=== PATIENT | male | born 1995 | race Hispanic/Latino ===

== ENCOUNTER 2017-06-22 11:38 | Observation (INO) | payer BC ==
[2017-06-21 10:13] LABS: BASOPHILS # (AUTO) 0.1 (0.0-0.1); BASOPHILS % 0.7 % (0.0-1.0); EOSINOPHILS # (AUTO) 0.2 (0.0-0.4); EOSINOPHILS % 2.5 % (0.0-6.0); HEMATOCRIT 47.8 % (38.2-49.6); LYMPHOCYTES # (AUTO) 1.9 (1.0-3.2); LYMPHOCYTES % 26.8 % (18.0-39.1); MEAN CORPUSCULAR HGB CONC 35.6 g/dL (31-35); MEAN CORPUSCULAR VOLUME 89.8 fL (81-99); MONOCYTES # (AUTO) 0.5 (0.2-0.8); MONOCYTES % 6.7 % (4.4-11.3); NEUTROPHILS # (AUTO) 4.3 (2.1-6.9); NEUTROPHILS % 62.4 % (38.7-80.0); PLATELET COUNT 245 x10e3/uL (140-360); RED BLOOD COUNT 5.32 x10e6/uL (4.3-5.7); RED CELL DISTRIBUTION WIDTH 11.8 % (11.7-14.4)
[2017-06-21 10:24] LABS: INR 0.86; PROTHROMBIN TIME 12.1 seconds (11.9-14.5)
[2017-06-21 10:25] LABS: PARTIAL THROMBOPLASTIN TIME 27.6 seconds (23.8-35.5)
[2017-06-21 10:30] LABS: ANION GAP 15.6 mmol/L (8-16); BLOOD UREA NITROGEN 12 mg/dL (7-26); BUN/CREATININE RATIO 10 (6-25); CALCIUM 9.9 mg/dL (8.4-10.2); CARBON DIOXIDE 28 mmol/L (22-29); CHLORIDE 104 mmol/L (98-107); CREATININE, SERUM 1.15 mg/dL (0.72-1.25); EST GLOMERULAR FILTRATION RATE > 60 ML/MIN (60-); GLUCOSE 106 mg/dL (74-118); POTASSIUM 4.6 mmol/L (3.5-5.1); SODIUM 143 mmol/L (136-145)
--- NOTE | 2017-06-21 11:10 | Diagnostic Imaging Report ---
PROCEDURE: Frontal and lateral views of the chest. COMPARISON: None. INDICATIONS: PECTUS EXCAVATUM, PLATE REMOVAL SURGERY TOMORROW FINDINGS: Lines/tubes: There is a plate anterior involving the sternum. Lungs: The lungs are well inflated and clear. There is no evidence of pneumonia or pulmonary edema. Pleura: There is no pleural effusion or pneumothorax. Heart and mediastinum: The heart and the mediastinum are normal. Bones: No acute bony abnormality. Mild pectus excavatum deformity of the chest. IMPRESSION: No acute cardiopulmonary disease. Flaco Fuentes D.O. Dictated by: Flaco Fuentes D.O. on 06/21/2017 at 11:18 Electronically approved by: Flaco Fuentes D.O. on 06/21/2017 at 11:18
[~2017-06-22] VITALS: Ht 182.9 cm; Wt 93.4 kg
[~2017-06-22 11:38] MED LIST: PERCOCET 5-3251 EACH PO; SYNTHROID125 MCG PO
[2017-06-22] MEDS ORDERED: BUPIVACAINE HCL 0.5% INJ 30 ML VIAL INJ ONE (13:15)
[2017-06-22] MEDS ORDERED: BACITRACIN 50,000 UNIT VIAL ONE (13:16)
[2017-06-22] MEDS ORDERED: VANCOMYCIN 1GM/NS 250 ML 250 ML ONE (14:21)
[2017-06-22] MEDS ORDERED: FENTANYL CITRATE/PF 100MCG/2 ML INJ ONE ×2 (17:02→19:02)
[2017-06-22] MEDS ORDERED: ONDANSETRON HCL 4 MG ORAL DISINTEGRATING TAB PO PRN (17:30)
[2017-06-22] MEDS ORDERED: HYDROMORPHONE 2MG/ML INJ ONE (17:54)
--- NOTE | 2017-06-22 18:08 | Diagnostic Imaging Report ---
PROCEDURE: A single AP view of the chest. COMPARISON: Patients [facility], DX, CHEST 2 VIEWS, 06/21/2017, 9:58. INDICATIONS: POST OP removal of Gonzales strut FINDINGS: Lines/tubes:, None. Lungs: The lungs are well inflated and grossly clear. There is no evidence of pneumonia or pulmonary edema. Pleura: There is no pleural effusion or pneumothorax. Heart and mediastinum: Cardiac silhouette is unremarkable. Pulmonary vasculature is normal. Bones: No acute bony abnormality. Previously visualized metallic strut has been removed. IMPRESSION: 1. No acute cardiopulmonary abnormalities. Lucio Cope M.D. Dictated by: Lucio Cope M.D. on 06/22/2017 at 18:16 Electronically approved by: Lucio Cope M.D. on 06/22/2017 at 18:16
[2017-06-22] MEDS: SODIUM CHLORIDE 0.9% 1000ML 1,000 ML IV SCH (18:40)
[2017-06-22] MEDS ORDERED: MIDAZOLAM HCL 2 MG/2 ML VIAL ONE (19:02)
[2017-06-22 19:56] VITALS: BP 129/77
[2017-06-22] MEDS: ACETAMINOPHEN/CODEINE 300MG - 30MG TAB PO PRN (20:51)
[2017-06-23] MEDS: ACETAMINOPHEN/CODEINE 300MG - 30MG TAB PO PRN ×2 (00:42→04:29)
[2017-06-23 01:33] VITALS: BP 124/74
[2017-06-23] MEDS ORDERED: HYDROMORPHONE 1MG/1ML INJ IV PRN (03:15)
[2017-06-23] MEDS ORDERED: TYLENOL WITH C1 EACH PO (03:24)
[2017-06-23] MEDS ORDERED: BACTROBAN15 G1 TOP (03:25)
[2017-06-23] MEDS: SODIUM CHLORIDE 0.9% 1000ML 1,000 ML IV SCH (04:00)
[2017-06-23 04:16] VITALS: BP 118/59
[2017-06-23] MEDS ORDERED: LEVOTHYROXINE SODIUM 100 MCG TAB PO SCH (06:00)
[2017-06-23] MEDS ORDERED: LEVOTHYROXINE SODIUM 75 MCG TAB PO SCH (06:00)
[2017-06-23] MEDS ORDERED: LEVOTHYROXINE SODIUM 125 MCG TAB PO SCH (06:30)
[2017-06-23 08:00] VITALS: BP 117/76
[2017-06-23] MEDS ORDERED: LIDOCAINE HCL 2% LOCAL INJ 5 ML SDV VIAL INJ ONE (08:14)
[2017-06-23] MEDS ORDERED: ROCURONIUM BROMIDE 10 MG/ML 5ML VIAL IV ONE (08:14)
[2017-06-23] MEDS ORDERED: SUCCINYLCHOLINE 200 MG/10 ML SYR IV ONE (08:14)
[2017-06-23] MEDS ORDERED: ONDANSETRON HCL INJ 2 MG/ML VIAL IV ONE (08:14)
[2017-06-23] MEDS ORDERED: DEXAMETHASONE SOD PHOS INJ 4 MG/ML VIAL IV ONE (08:14)
[2017-06-23] MEDS ORDERED: SEVOFLURANE INHAL SOLN 250 ML PEN BTL INH ONE (08:14)
[2017-06-23] MEDS ORDERED: KETOROLAC TROMETHAMINE 30 MG/ML VIAL IV ONE (08:14)
[2017-06-23] MEDS ORDERED: PROPOFOL IV EMULSION 10 MG/ML 20 ML VIAL IV ONE (08:14)
--- NOTE | 2017-06-24 17:40 | Operative Report ---
DATE OF PROCEDURE: June 22, 2017 [employer]CRA[employer]INTENA[employer]CE ENGINEER: Artie Alavrado CST PREOPERATIVE DIAGNOSES: 1. Status post correction of pectus excavatum in the past. 2. Indwelling Gonzales bar. POSTOPERATIVE DIAGNOSES: 1. Status post correction of pectus excavatum in the past. 2. Indwelling Gonzales bar. TITLE OF OPERATION: Removal of Gonzales bar. DESCRIPTION OF OPERATION: After the satisfactory accomplishment of general anesthesia, the patient's chest and abdomen were prepped and draped in a sterile fashion. A fluoroscopy machine was brought in to take imaging pictures of the chest. The Gonzales bar and the associated wires were easily visualized. Small 1.5 to 2 inch incisions were made in the pectoral area on the right and left sides of the chest over the Gonzales bar and wires. These incisions were carried down through the muscles and fascia to expose the distal ends of the bar on both the right and left sides. The fixation wires were also located. The bar was dissected free from the surrounding tissues, and the wire was cut. This procedure was carried out on both the right and left sides. Once the bar was freed, it was easily grasped and removed by sliding it out from under the old pectus repair. The wounds were then thoroughly irrigated with antibiotic solution and injected with local anesthesia (1% Xylocaine). The wounds were then closed in layers with interrupted 2-0 Vicryl for the deep tissues and Monocryl subcuticular stitches for the skin. The wounds were then sterilely dressed. The patient was returned to the recovery room in good condition. Job#: [id number]
--- NOTE | 2017-08-10 14:48 | Discharge Summary ---
Mr. Gordillo is a young man who had previously undergone a complicated repair of his pectus excavatum. Part of the repair involved a long-term placement of an Gonzales strut, made of stainless steel. After approximately 1 year's time, the Gonzales strut required removal, and this was done on 06/22/2017. The operation proceeded without complication, but the patient requested an overnight stay for pain management. On 06/23/2017, the patient was deemed ready for discharge in good condition. His pain was well managed with oral pain pills, and his incisions looked fine. The patient was discharged on 06/23/2017 and asked to return to the surgery clinic in 2 weeks' time for further followup. REJI TODD MD Job#: [id number]
== END 2017-06-23 08:15 | disposition home or self-care (01) ==
LOC: OR 11:38 → IMCU 16:30
PROVIDERS: ADMIT Thoracic Surgery (Cardiothoracic Vascular Surgery); ATTEND Thoracic Surgery (Cardiothoracic Vascular Surgery)
DX: Z45.89 Encounter for adjustment and management of other implanted devices (principal); M95.4 Acquired deformity of chest and rib
CPT/HCPCS: 20680; 36415; 71010; 71020; 80048; 85025; 85610; 85730; 86850; 86900; 86920; 93005; G0378 ×2; J1100; J1170; J1885; J2001; J2250; J2405; J3370; J7030; 76001